=== PATIENT | male | born 1950 | race Caucasian/White ===

== ENCOUNTER 2017-03-02 06:35 | Day surgery (SDC) | payer MEDICARE ==
[2017-03-02 07:21] LABS: BASOPHILS 1.4 % (0-2); EOSINOPHILS 15.2 % (0-7); HEMATOCRIT 40.3 % (42.0-54.0); HEMOGLOBIN 13.1 g/dL (13.5-17.5); IMMATURE GRANULOCYTES 0.4 % (0-5); LYMPHOCYTES 27.8 % (15-50); MCH 30.8 pg (26.0-34.0); MCHC 32.5 g/dL (31.0-37.0); MCV 94.6 fL (80.0-100.0); MEAN PLATELET VOLUME 9.3 fL (7.4-10.4); NEUTROPHILS 46.2 % (40-80); PLATELET COUNT 281 10x3/uL (130-400); RBC 4.26 10x6/uL (4.20-6.10); RDW 14.1 % (11.5-14.5); WBC 6.9 10x3/uL (4.8-10.8)
[2017-03-02 07:30] LABS: ANION GAP 16.4 mmol/L (8-16); CALCIUM 9.3 mg/dL (8.5-10.1); CARBON DIOXIDE 28.2 mmol/L (21.0-32.0); CREATININE - SERUM 6.5 mg/dL (0.6-1.3); POTASSIUM - SERUM 3.6 mmol/L (3.5-5.1)
[2017-03-02 08:09] LABS: APTT 26.5 SECONDS (22.8-39.4); INR 0.97 (0.85-1.17); PROTIME 12.7 SECONDS (11.6-15.0)
[2017-03-02] MEDS ORDERED: COREG6.25 MG PO (09:21)
[2017-03-02] MEDS ORDERED: HYDRALAZINE HCL25 MG PO (09:22)
[2017-03-02] MEDS ORDERED: ASPIRIN81 MG PO (09:23)
[2017-03-02] MEDS ORDERED: TUMS500 MG PO (09:23)
[2017-03-02 09:30] VITALS: BP 109/69; BMI 23.8
--- NOTE | 2017-03-06 15:51 | OP ---
PATIENT NAME: SALLIE BUTLER MEDICAL RECORD: [id number] :50 LOCATION:[facility] ADMISSION DATE: SURGEON: LESIA CURRAN MD DATE OF OPERATION: 03/02/2017 REFERRED BY: Dr. Quinn Lewis. PREOPERATIVE DIAGNOSES: 1. 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 2. End-stage renal disease, N18.6. 3. Dependence on renal dialysis, Z99.2. OPERATION PERFORMED: Construction of a new right brachial artery to cephalic vein AV fistula and also ligation of the existing right radial artery to cephalic vein AV fistula. SURGEON: Lesia Curran MD ANESTHESIA: General with LMA per [employer]. PREOPERATIVE NOTE: Mr. Butler is a 66-year-old white male patient from [place]. He has a dialysis catheter in place in the right internal jugular vein and it has been there for many months. Apparently, he has had a right radiocephalic Debi type AV fistula at the wrist, which has developed a number of veins, which are usable. The cephalic vein and median antebrachial vein from the wrist to the antecubital space are occluded and could not be reopened at most recent attempt at endovascular treatment. He has been referred to me and is brought to the operating room at this time to create a new fistula. His previous fistula drained both the cephalic and basilic veins with a large median cubital vein and the cephalic vein is quite dilated already and I expect it can mature quickly to a usable access. I am going to construct a brachiocephalic fistula and also will need to ligate the old radiocephalic. With the patient under general anesthesia in supine position, he was prepped and draped in sterile manner. A vertical incision was made over the antecubital space and forearm in anticipation of distal brachial artery or proximal radial artery fistula. The median cubital vein and numerous tributaries were dissected from the surrounding tissues. The tributaries from the forearm were divided between Vicryl ligatures. The vein draining to the basilic was multiply ligated and divided leaving the median cubital vein draining to the cephalic only. The brachial artery was exposed and found to be quite large and its bifurcation was a bit too distal to allow for a convenient proximal radial artery fistula, so I went ahead with a distal brachial artery fistula creation. The vein was prepared for anastomosis by basically excising a cluster of vein tributary orifices and creating a nice venotomy in that manner. It was flushed proximally and distally with heparinized saline. I did pass a 3 mm coronary artery dilator distally into the vein in hopes of disrupting any remaining functional valves and possibly encouraging development of the bidirectional fistula. The artery was opened and flushed proximally and distally with heparinized saline and a [id number] anastomosis performed with running 7-0 Prolene. On completion with release of the occluding loops and clamps, excellent flow was established in the fistula proximally. Flow in the distal antebrachial vein was less rewarding and I really do anticipate development of bidirectional flow. The wound was irrigated with Ancef and gentamicin solution. The vessels had been treated with topical papaverine. The wound was infiltrated with Marcaine 0.25% and closed OPERATIVE REPORT [id number] SALLIE BUTLER without the use of a drain approximating subcutaneous tissues with interrupted inverted 3-0 Vicryl and skin with a running 4-0 Monocryl. I then made a longitudinal incision at the wrist and exposed the cephalic vein immediately proximal to the arterial anastomosis. It was dissected from the surrounding tissues and ligated with 2-0 Vicryl. That wound was then also infiltrated with Marcaine and closed with 3-0 Vicryl and Dermabond glue. Dermabond glue was used to close the proximal incision as well and both incisions were dressed with Maxorb Ag, Tegaderm, and Cavilon skin prep. The patient was awakened and with a great new fistula taken to the recovery room. Blood loss was trivial, certainly none replaced. All sponges, instruments and needles were accounted for. No drain was used and no surgical specimen was submitted. The patient will be allowed to go home today and he will follow up with me in my office next week. He was given a prescription for tramadol 50 mg #10 tablets. He can take 1 as often as every 4 hours p.r.n. pain. He is to continue or resume his usual home diet, medications, and activities as tolerated. TRANSINT:[id number] Voice Confirmation ID: [id number] DOCUMENT ID: [id number] LESIA CURRAN MD at 1554 CC: [id number] DICTATION DATE: 03/02/17 7442 MINING TECHNICIAN: 03/02/17 1326 DEP SDC 03/02/17 [facility] [address] [facility], [facility]
== END 2017-03-02 13:45 | disposition home or self-care (01) ==
LOC: D.OPS 06:35
PROVIDERS: Surgery
DX: T82.590A Other mechanical complication of surgically created arteriovenous fistula, initial encounter (principal); N18.6 End stage renal disease; Z99.2 Dependence on renal dialysis; Z01.812 Encounter for preprocedural laboratory examination